=== PATIENT | male | born 1995 | race African-American/Black ===

== ENCOUNTER 2022-07-29 05:18 | Day surgery (SDC) | payer BC, OTHER ==
[2022-07-27 16:17] VITALS: BMI 26.4
[2022-07-29] MEDS ORDERED: BUPIVACAINE HCL/PF 0.5% (5MG/ML) 10 ML VIAL ONE (07:09)
[2022-07-29] MEDS ORDERED: DEXAMETHASONE SOD PHOSPHATE 10 MG/1 ML VIAL ONE (07:09)
[2022-07-29] MEDS ORDERED: oxyCODONE HCL 5 MG TABLET PO PRN ×2 (07:27)
[2022-07-29] MEDS ORDERED: ONDANSETRON 4 MG/2 ML VIAL IVPUSH PRN (07:27)
[2022-07-29] MEDS ORDERED: LACTATED RINGERS SOLUTION 1,000 ML IV SCH (07:30)
[2022-07-29 08:26] LABS: PH,URINE 6.5 (5.0-8.0); URINE APPEARANCE CLEAR; URINE BILIRUBIN NEGATIVE (NEGATIVE); URINE COLOR YELLOW; URINE GLUCOSE (UA) NEGATIVE (NEGATIVE); URINE KETONE TRACE (NEGATIVE); URINE LEUK ESTERASE NEGATIVE (NEGATIVE); URINE NITRITE NEGATIVE (NEGATIVE); URINE PROTEIN NEGATIVE (NEGATIVE)
[2022-07-29] MEDS ORDERED: MIDAZOLAM HCL 2 MG/2 ML SINGLE DOSE VIAL ONE (08:32)
[2022-07-29] MEDS ORDERED: PROPOFOL 20 ML ONE ×2 (09:21→09:56)
[2022-07-29] MEDS ORDERED: ceFAZolin SODIUM 1 GM VIAL IVPB ONE (09:43)
[2022-07-29] MEDS ORDERED: ceFAZolin SODIUM 1 GM VIAL ONE (09:46)
[2022-07-29 14:12] VITALS: RESP 20; TEMP 97.5
[2022-07-29] MEDS ORDERED: oxyCODONE HCL 5 MG TABLET ONE (15:31)
[2022-07-29 16:59] VITALS: BP 137/85; PULSE 58
== END 2022-07-29 16:38 | disposition home or self-care (01) ==
LOC: JASU-SURG 05:18
PROVIDERS: ATTEND Orthopaedic Surgery
PROC: 0LQN0ZZ Repair Right Lower Leg Tendon, Open Approach (ICD-10-PCS; principal; 2022-07-29 09:48)
DX: M67.873 Other specified disorders of tendon, right ankle and foot (principal)
CPT/HCPCS: 81003; 94760; J1100